=== PATIENT | male | born 1945 | race Caucasian/White ===

== ENCOUNTER 2016-11-07 23:36 | Emergency (ER) | payer MEDICARE, OTHER ==
[2016-11-08 00:23] LABS: BASOPHIL 0.2 % (0-2); EOSINOPHIL 1.8 % (0-7); HGB 15.8 g/dl (13.2-18.0); LYMPHOCYTE 16.8 % (15-48); MCH 30.8 pg (25.0-31.0); MCHC 35.9 g/dL (32.0-36.0); MCV 85.8 fL (78.0-100.0); MONOCYTE 6.1 % (0-12); MPV 10.3 fL (6.0-9.5); NEUTROPHIL 75.1 % (41-80); PLT 177 K/uL (150-400); RBC 5.13 M/uL (4.70-6.00); RDW 13.5 % (11.5-14.0); WBC 11.4 K/uL (4.0-10.5)
[2016-11-08 00:39] LABS: ALBUMIN 4.7 g/dL (3.4-4.8); BILIRUBIN - TOTAL 0.8 mg/dL (0.1-1.0); CREATININE 0.8 mg/dL (0.7-1.2); GLOBULIN (CALCULATION) 3.1 g/dL (2.2-4.2); POTASSIUM 3.9 mmol/L (3.5-5.1); TOTAL PROTEIN 7.8 g/dL (6.4-8.3)
[2016-11-08 02:16] LABS: BILIRUBIN NEGATIVE (NEGATIVE); BLOOD 2+ Ery/uL (NEGATIVE); CLARITY CLEAR (CLEAR); COLOR YELLOW (YELLOW); GLUCOSE (U) TRACE mg/dL (NORMAL); KETONE (U) NEGATIVE (NEGATIVE); LEUKOCYTES NEGATIVE Leu/uL (NEGATIVE); NITRITE NEGATIVE (NEGATIVE); PROTEIN 1+ mg/dL (NEGATIVE); SPECIFIC GRAVITY >=1.030 (1.001-1.030); UROBILINOGEN 0.2 mg/dL (0.2-1.0)
[2016-11-08 02:22] LABS: BACTERIA TRACE; MUCOUS TRACE; URINARY WBC RARE
== END 2016-11-08 02:37 | disposition home or self-care (01) ==
LOC: FER 23:36
PROVIDERS: Emergency Medicine Emergency Medical Services
DX: N13.2 Hydronephrosis with renal and ureteral calculous obstruction (principal); E86.9 Volume depletion, unspecified; E11.9 Type 2 diabetes mellitus without complications; I10 Essential (primary) hypertension; I25.2 Old myocardial infarction; Z87.442 Personal history of urinary calculi
CPT/HCPCS: 36415; 80053; 81001; 85025; J1170; J1885; J2270; J2405

== ENCOUNTER 2021-02-16 01:23 | Emergency (ER) | payer MEDICARE, OTHER ==
[~2021-02-16 01:23] MED LIST: ASPIRIN EC81 MG PO; ATENOLOL25 MG PO; CLARITIN10 MG PO; DULERA 100 MCG8.8 GM INH; LISINOPRIL-HCT1 EAC2 PO; LOVAZA1 GM PO; METFORMIN HCL500 MG PO; MOBIC15 MG PO; PRILOSEC20 MG PO; SINGULAIR10 MG PO
[2021-02-16 02:20] LABS: BASOPHIL 0.4 % (0-2); EOSINOPHIL 3.5 % (0-7); HCT 44.7 % (42.0-52.0); HGB 15.5 g/dl (13.2-18.0); LYMPHOCYTE 39.7 % (15-48); MCH 30.1 pg (25.0-31.0); MCHC 34.7 g/dL (32.0-36.0); MCV 86.8 fL (78.0-100.0); MONOCYTE 11.6 % (0-12); MPV 11.3 fL (6.0-9.5); NEUTROPHIL 43.9 % (41-80); NRBC 0; PLT 159 K/uL (150-400); RBC 5.15 M/uL (4.70-6.00); RDW 13.2 % (11.5-14.0); WBC 7.1 K/uL (4.0-10.5)
[2021-02-16 02:24] LABS: INR 1.2 (0.9-1.2); PROTHROMBIN TIME 14.6 SECONDS (11.8-13.4)
[2021-02-16 02:25] LABS: PTT 27.7 SECONDS (24.4-34.7)
[2021-02-16 02:34] LABS: ALBUMIN 4.1 g/dL (3.4-5.0); ALKALINE PHOSHATASE 50 U/L (46-116); ALT 49 U/L (16-63); AST 31 U/L (15-37); BILIRUBIN - TOTAL 0.5 mg/dL (0.2-1.0); BUN 12 mg/dL (7-18); BUN/CREAT RATIO (CALC) 20.3 RATIO; CHLORIDE 100 mmol/L (98-107); CO2 (BICARBONATE) 28 mmol/L (21-32); CREATININE 0.59 mg/dL (0.67-1.17); GLOBULIN (CALCULATION) 3.9 g/dL; GLUCOSE 183 mg/dL (74-106); POTASSIUM 3.6 mmol/L (3.5-5.1)
[2021-02-16 02:37] LABS: C-REACTIVE PROTEIN < 0.20 mg/dL (<=0.90)
[2021-02-16] MEDS ORDERED: AUGMENTIN 875-1 EACH PO (05:05)
== END 2021-02-16 05:30 | disposition home or self-care (01) ==
LOC: FER 01:23
PROVIDERS: Emergency Medicine Emergency Medical Services
DX: J32.9 Chronic sinusitis, unspecified (principal); E10.40 Type 1 diabetes mellitus with diabetic neuropathy, unspecified; I10 Essential (primary) hypertension; Z95.5 Presence of coronary angioplasty implant and graft
CPT/HCPCS: 36415; 70450; 71045; 80053; 84484; 85025; 85610; 85730; 86140; 93005; J2930

== ENCOUNTER 2021-06-29 15:21 | Emergency (ER) | payer MEDICARE, OTHER ==
[~2021-06-29 15:21] MED LIST changes: +AUGMENTIN 875-1 EACH PO
[2021-06-29 16:53] LABS: BILIRUBIN NEGATIVE (NEGATIVE); BLOOD 2+ Ery/uL (NEGATIVE); CLARITY CLEAR (CLEAR); COLOR YELLOW (YELLOW); GLUCOSE (U) NORMAL (NORMAL); LEUKOCYTES NEGATIVE Leu/uL (NEGATIVE); NITRITE NEGATIVE (NEGATIVE); PROTEIN NEGATIVE (NEGATIVE); SPECIFIC GRAVITY 1.025 (1.001-1.030); UROBILINOGEN 0.2 mg/dL (0.2-1.0)
[2021-06-29 17:02] LABS: BASOPHIL 0.3 % (0-2); HCT 44.5 % (42.0-52.0); HGB 15.5 g/dl (13.2-18.0); LYMPHOCYTE 17.5 % (15-48); MCH 30.5 pg (25.0-31.0); MCHC 34.8 g/dL (32.0-36.0); MCV 87.4 fL (78.0-100.0); MONOCYTE 8.5 % (0-12); MPV 10.6 fL (6.0-9.5); NEUTROPHIL 72.2 % (41-80); NRBC 0; PLT 177 K/uL (150-400); RBC 5.09 M/uL (4.70-6.00); RDW 12.8 % (11.5-14.0); WBC 9.8 K/uL (4.0-10.5)
[2021-06-29 17:10] LABS: MUCOUS TRACE
[2021-06-29 17:19] LABS: ALBUMIN 3.8 g/dL (3.4-5.0); BILIRUBIN - TOTAL 0.6 mg/dL (0.2-1.0); BUN/CREAT RATIO (CALC) 26.5 RATIO; CREATININE 0.68 mg/dL (0.67-1.17); GLOBULIN (CALCULATION) 3.7 g/dL; POTASSIUM 3.6 mmol/L (3.5-5.1); TOTAL PROTEIN 7.5 g/dL (6.4-8.2)
[2021-06-29] MEDS ORDERED: ONDANSETRON ODT4 MG PO (18:39)
== END 2021-06-29 18:55 | disposition home or self-care (01) ==
LOC: FER 15:21
PROVIDERS: Internal Medicine
DX: N20.0 Calculus of kidney (principal)
CPT/HCPCS: 36415; 80053; 81001; 82150; 83690; 85025; Q9967

== ENCOUNTER 2021-07-06 01:45 | Emergency (ER) | payer MEDICARE, OTHER ==
[~2021-07-06 01:45] MED LIST changes: +ONDANSETRON ODT4 MG PO
[2021-07-06 02:49] LABS: BASOPHIL 0.2 % (0-2); EOSINOPHIL 2.5 & (0-7); HCT 43.3 % (42.0-52.0); LYMPHOCYTE 22.3 % (15-48); MCH 29.8 pg (25.0-31.0); MCHC 34.6 g/dL (32.0-36.0); MCV 85.9 fL (78.0-100.0); MONOCYTE 10.1 % (0-12); MPV 10.9 fL (6.0-9.5); NEUTROPHIL 64.3 % (41-80); PLT 180 K/uL (150-400); RBC 5.04 M/uL (4.70-6.00); RDW 12.7 % (11.5-14.0); WBC 8.03 K/uL (4.0-10.5)
[2021-07-06 03:07] LABS: BILIRUBIN NEGATIVE (NEGATIVE); BLOOD 3+ Ery/uL (NEGATIVE); CLARITY CLEAR (CLEAR); COLOR YELLOW (YELLOW); GLUCOSE (U) 1+ mg/dL (NORMAL); LEUKOCYTES NEGATIVE Leu/uL (NEGATIVE); NITRITE NEGATIVE (NEGATIVE); PROTEIN NEGATIVE (NEGATIVE); SPECIFIC GRAVITY >=1.030 (1.001-1.030); UROBILINOGEN 0.2 mg/dL (0.2-1.0)
[2021-07-06 03:08] LABS: ALBUMIN 3.7 g/dL (3.4-5.0); BUN/CREAT RATIO (CALC) 27.8 RATIO; CREATININE 0.72 mg/dL (0.67-1.17); GLOBULIN (CALCULATION) 3.9 g/dL; POTASSIUM 4.2 mmol/L (3.5-5.1); TOTAL PROTEIN 7.6 g/dL (6.4-8.2)
[2021-07-06 03:23] LABS: URINARY RBC 20-50
[2021-07-06 03:24] LABS: MUCOUS TRACE; SQUAMOUS EPITHELIAL CELLS RARE
[2021-07-06] MEDS ORDERED: FLOMAX 0.4 MG0.4 MG PO (03:58)
[2021-07-06] MEDS ORDERED: ZOFRAN4 M1 PO (03:58)
[2021-07-06] MEDS ORDERED: NORCO 5-325 TA1 EACH PO (04:00)
== END 2021-07-06 04:11 | disposition home or self-care (01) ==
LOC: FER 01:45
PROVIDERS: Emergency Medicine
DX: N20.0 Calculus of kidney (principal); I10 Essential (primary) hypertension; E11.9 Type 2 diabetes mellitus without complications; I25.10 Atherosclerotic heart disease of native coronary artery without angina pectoris
CPT/HCPCS: 36415; 80053; 81001; 83690; 85025; J1885; J2270; J7030

== ENCOUNTER 2021-10-30 18:46 | Emergency (ER) | payer MEDICARE, OTHER ==
[~2021-10-30 18:46] MED LIST changes: +FLOMAX 0.4 MG0.4 MG PO; +NORCO 5-325 TA1 EACH PO; +ZOFRAN4 M1 PO
[2021-10-30 20:08] LABS: BASOPHIL 0.3 % (0-2); EOSINOPHIL 1.8 % (0-7); HCT 44.3 % (42.0-52.0); HGB 15.5 g/dl (13.2-18.0); LYMPHOCYTE 24.1 % (15-48); MCH 30.3 pg (25.0-31.0); MCV 86.7 fL (78.0-100.0); MONOCYTE 10.5 % (0-12); MPV 11.4 fL (6.0-9.5); NEUTROPHIL 62.8 % (41-80); NRBC 0; PLT 179 K/uL (150-400); RBC 5.11 M/uL (4.70-6.00); RDW 13.2 % (11.5-14.0); WBC 9.6 K/uL (4.0-10.5)
[2021-10-30 20:19] LABS: ALBUMIN 4.3 g/dL (3.4-5.0); BILIRUBIN - TOTAL 0.8 mg/dL (0.2-1.0); BUN/CREAT RATIO (CALC) 23.9 RATIO; CREATININE 0.92 mg/dL (0.67-1.17); GLOBULIN (CALCULATION) 3.8 g/dL; POTASSIUM 3.7 mmol/L (3.5-5.1); TOTAL PROTEIN 8.1 g/dL (6.4-8.2)
[2021-10-30 20:27] LABS: BILIRUBIN NEGATIVE (NEGATIVE); BLOOD NEGATIVE Ery/uL (NEGATIVE); CLARITY CLEAR (CLEAR); COLOR YELLOW (YELLOW); GLUCOSE (U) NORMAL (NORMAL); LEUKOCYTES NEGATIVE Leu/uL (NEGATIVE); NITRITE NEGATIVE (NEGATIVE); PROTEIN TRACE (LOW) mg/dL (NEGATIVE); SPECIFIC GRAVITY 1.025 (1.001-1.030); UROBILINOGEN 0.2 mg/dL (0.2-1.0)
[2021-10-30] MEDS ORDERED: ONDANSETRON ODT4 MG PO (22:21)
[2021-10-30] MEDS ORDERED: OXY-IR 5MG5 MG PO (22:21)
[2021-10-30] MEDS ORDERED: FLOMAX0.4 MG PO (22:21)
== END 2021-10-30 22:35 | disposition home or self-care (01) ==
LOC: FER 18:46
PROVIDERS: Emergency Medicine
DX: N13.2 Hydronephrosis with renal and ureteral calculous obstruction (principal); I10 Essential (primary) hypertension; I25.10 Atherosclerotic heart disease of native coronary artery without angina pectoris; E78.5 Hyperlipidemia, unspecified; Z79.82 Long term (current) use of aspirin; Z79.899 Other long term (current) drug therapy; Z87.442 Personal history of urinary calculi
CPT/HCPCS: 36415; 80053; 81003; 85025; J1170; J1885; J2405; J7030

== ENCOUNTER 2022-01-02 07:06 | Emergency (ER) | payer MEDICARE, OTHER ==
[~2022-01-02 07:06] MED LIST changes: +FLOMAX0.4 MG PO; +OXY-IR 5MG5 MG PO
[2022-01-02 08:31] LABS: BILIRUBIN NEGATIVE (NEGATIVE); BLOOD NEGATIVE Ery/uL (NEGATIVE); CLARITY CLEAR (CLEAR); COLOR YELLOW (YELLOW); GLUCOSE (U) TRACE mg/dL (NORMAL); LEUKOCYTES NEGATIVE Leu/uL (NEGATIVE); NITRITE NEGATIVE (NEGATIVE); PROTEIN NEGATIVE (NEGATIVE); UROBILINOGEN 0.2 mg/dL (0.2-1.0); pH 5.5 (5.0-9.0)
[2022-01-02 10:32] LABS: BASOPHIL 0.4 % (0-2); EOSINOPHIL 2.1 % (0-7); HCT 43.1 % (42.0-52.0); HGB 14.7 g/dl (13.2-18.0); LYMPHOCYTE 31.9 % (15-48); MCH 29.3 pg (25.0-31.0); MCHC 34.1 g/dL (32.0-36.0); MONOCYTE 10.1 % (0-12); MPV 10.6 fL (6.0-9.5); NEUTROPHIL 54.9 % (41-80); NRBC 0; PLT 167 K/uL (150-400); RBC 5.01 M/uL (4.70-6.00); RDW 12.8 % (11.5-14.0); WBC 7.2 K/uL (4.0-10.5)
[2022-01-02 10:53] LABS: ALBUMIN 3.9 g/dL (3.4-5.0); BILIRUBIN - TOTAL 0.7 mg/dL (0.2-1.0); BUN/CREAT RATIO (CALC) 20.3 RATIO; CREATININE 0.64 mg/dL (0.67-1.17); GLOBULIN (CALCULATION) 3.6 g/dL; POTASSIUM 3.8 mmol/L (3.5-5.1); TOTAL PROTEIN 7.5 g/dL (6.4-8.2)
[2022-01-02 11:13] LABS: BILIRUBIN NEGATIVE (NEGATIVE); BLOOD NEGATIVE Ery/uL (NEGATIVE); CLARITY CLEAR (CLEAR); COLOR YELLOW (YELLOW); GLUCOSE (U) TRACE mg/dL (NORMAL); LEUKOCYTES NEGATIVE Leu/uL (NEGATIVE); NITRITE NEGATIVE (NEGATIVE); PROTEIN NEGATIVE (NEGATIVE); UROBILINOGEN 0.2 mg/dL (0.2-1.0); pH 5.5 (5.0-9.0)
[2022-01-02] MEDS ORDERED: NORCO 5-325 TA1 EACH PO (11:36)
== END 2022-01-02 11:51 | disposition home or self-care (01) ==
LOC: FER 07:06
PROVIDERS: Emergency Medicine
DX: M51.16 Intervertebral disc disorders with radiculopathy, lumbar region (principal); E11.9 Type 2 diabetes mellitus without complications; I10 Essential (primary) hypertension; Z88.6 Allergy status to analgesic agent; Z88.8 Allergy status to other drugs, medicaments and biological substances
CPT/HCPCS: 36415; 80053; 81003; 85025; J2270; J2405

== ENCOUNTER 2022-04-03 11:56 | Emergency (ER) | payer MEDICARE, OTHER ==
[~2022-04-03 11:56] MED LIST changes: +NEURONTIN300 MG PO
[2022-04-03 16:30] LABS: INFLUENZA A NAA NEGATIVE (NEGATIVE)
[2022-04-03 16:42] LABS: CORONAVIRUS 2019 SARS-COV-2 POSITIVE (NEGATIVE)
[2022-04-03 17:25] LABS: BUN/CREAT RATIO (CALC) 35.9 RATIO; CREATININE 0.64 mg/dL (0.67-1.17); POTASSIUM 4.4 mmol/L (3.5-5.1)
[2022-04-03 17:36] LABS: BILIRUBIN NEGATIVE (NEGATIVE); BLOOD NEGATIVE Ery/uL (NEGATIVE); CLARITY CLEAR (CLEAR); COLOR YELLOW (YELLOW); GLUCOSE (U) NORMAL (NORMAL); LEUKOCYTES NEGATIVE Leu/uL (NEGATIVE); NITRITE NEGATIVE (NEGATIVE); PROTEIN NEGATIVE (NEGATIVE); UROBILINOGEN 0.2 mg/dL (0.2-1.0)
[2022-04-03 17:46] LABS: BASOPHIL 0.5 % (0-2); EOSINOPHIL 2.5 % (0-7); HGB 14.8 g/dl (13.2-18.0); LYMPHOCYTE 39.1 % (15-48); MCH 30.1 pg (25.0-31.0); MCHC 34.4 g/dL (32.0-36.0); MCV 87.4 fL (78.0-100.0); MONOCYTE 10.6 % (0-12); MPV 10.3 fL (6.0-9.5); NEUTROPHIL 46.7 % (41-80); NRBC 0; PLT 157 K/uL (150-400); RBC 4.92 M/uL (4.70-6.00); RDW 13.2 % (11.5-14.0)
[2022-04-03 17:49] LABS: WBC 8.1 K/uL (4.0-10.5)
[2022-04-03] MEDS ORDERED: PREDNISONE 20MG20 MG PO (17:53)
[2022-04-03] MEDS ORDERED: ANTIVERT25 MG PO (17:53)
== END 2022-04-03 18:25 | disposition home or self-care (01) ==
LOC: FER 11:56
PROVIDERS: Nurse Practitioner Family
DX: U07.1 COVID-19 (principal); R42 Dizziness and giddiness; I10 Essential (primary) hypertension; J45.909 Unspecified asthma, uncomplicated; Z88.1 Allergy status to other antibiotic agents; Z88.8 Allergy status to other drugs, medicaments and biological substances
CPT/HCPCS: 36415; 70450; 80048; 81003; 85025; J1100; J2405; J7030; U0002